=== PATIENT | female | born 1990 | race Caucasian/White ===

== ENCOUNTER 2017-04-21 10:31 | Emergency (ER) | payer SELFPAY ==
[~2017-04-21] VITALS: Ht 175.3 cm; Wt 100.0 kg
[2017-04-21 10:33] VITALS: BP 130/80; PULSE 95; RESP 20; TEMP 97.8; O2SAT 99
[2017-04-21] MEDS ORDERED: PROPARACAINE HCL 0.5% OPHT SOLN 15 ML BTL RIGHT EYE ONE (11:45)
[2017-04-21] MEDS ORDERED: IBUP800T23 PO (12:01)
[2017-04-21] MEDS ORDERED: ERYTOIN10 RIGHT EYE (12:01)
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
== END 2017-04-21 12:39 | disposition home or self-care (01) ==
LOC: NEPK 10:31
DX: S05.01XA Injury of conjunctiva and corneal abrasion without foreign body, right eye, initial encounter (principal); W22.8XXA Striking against or struck by other objects, initial encounter
CPT/HCPCS: 99283